=== PATIENT | female | born 1990 | race African-American/Black ===

== ENCOUNTER 2020-04-24 15:45 | Outpatient (REF) | payer OTHER, SELFPAY ==
[2020-04-25 08:57] LABS: HBS Num1 84.35 mIU/mL (0-7.99); ~Hepatitis B Surface Antibody REACTIVE (Nonreactive)
[2020-04-25 09:31] LABS: HBc Num1 0.08 S/CO (0.00-0.79); HBsAGNum1 0.19 S/CO (0.00-0.99); Hepatitis B Core Antibody Nonreactive (Nonreactive); Hepatitis B Surface Antigen Negative (Negative)
== END 2020-04-24 15:46 | disposition home or self-care (01) ==
LOC: HO.LAB 15:45
PROVIDERS: Visit Provider Physician Assistant
DX: Z02.1 Encounter for pre-employment examination (principal)
CPT/HCPCS: 86704; 86706; 87340